=== PATIENT | female | born 1990 | race Caucasian/White ===

== ENCOUNTER 2022-02-21 20:23 | Emergency (ER) | payer OTHER ==
[~2022-02-21] VITALS: Ht 165.1 cm; Wt 79.2 kg
[~2022-02-21 20:23] MED LIST: ANTIVERT25 MG PO; DILAUDID8 MG PO; FLEXERIL10 MG PO; IBUPROFEN400 MG PO; IBUPROFEN600 MG PO; MECLIZINE HCL25 MG PO; NAPROSYN500 MG PO; ORTHO TRI-CYCL1 EAC1 PO; OXYCONTIN10 MG PO; VICODIN 5-3001 EACH PO; ZOFRAN ODT4 MG PO; ZOFRAN4 MG PO
[2022-02-21] MEDS ORDERED: CYCLOBENZAPRINE10 MG PO (21:37)
[2022-02-21] MEDS ORDERED: BENZONATATE100 MG PO (21:37)
== END 2022-02-21 22:01 | disposition home or self-care (01) ==
LOC: ED 20:23
DX: J10.1 Influenza due to other identified influenza virus with other respiratory manifestations (principal); Z20.822 Contact with and (suspected) exposure to COVID-19; Z88.0 Allergy status to penicillin; Z88.1 Allergy status to other antibiotic agents
CPT/HCPCS: 71045; 87502; 94664; 96372; 99283-25; C9803; J1885; U0003

== ENCOUNTER 2022-09-23 07:09 | Day surgery (SDC) | payer OTHER ==
[2022-09-17 15:17] VITALS: BP 10/68
[~2022-09-23] VITALS: Ht 165.1 cm; Wt 65.9 kg
[~2022-09-23 07:09] MED LIST changes: +BENZONATATE100 MG PO; +CYCLOBENZAPRINE10 MG PO
[2022-09-23 07:24] VITALS: BP 97/67
--- NOTE | 2022-09-23 10:20 | NUR ---
09/23/22 1020 Lin Bains 1015-PATIENT ARRIVED TO PACU ON 6L MASK RR EVEN NONAROUSABLE. SR. IVF INFUSING. СЕРГЕЙ PAD PLACED NO DRAINAGE.
[2022-09-23] MEDS ORDERED: MOTRIN IB200 M1 PO (10:28)
[2022-09-23 10:56] VITALS: BP 104/79
--- NOTE | 2022-09-24 19:26 | OR ---
[facility] [address], [place] [address] Signed DATE OF OPERATION: 09/23/2022 SURGEON: Kenroy Jacobsen DO PREOPERATIVE DIAGNOSES: 1. Menorrhagia. 2. Abnormal ultrasound of the endometrium. POSTOPERATIVE DIAGNOSES: 1. Menorrhagia. 2. Endometrial polyp. PROCEDURES PERFORMED: 1. Hysteroscopic polypectomy. 2. Dilation and curettage. ANESTHESIA: MAC. ESTIMATED BLOOD LOSS: 10 mL. FLUID DEFICIT: 300 mL. SPECIMEN: Endometrial curettings and polyp. FINDINGS: Normal external genitalia with normal clitoris, urethral meatus, bilateral Lyons's, Bartholin's glands. Normal vagina and cervix. Severely anterior flexed uterus. On hysteroscopy, thickened endometrium and endometrial polyp noted at 12 o'clock. Normal tubal ostia bilaterally. The polyp was completely excised. COMPLICATIONS: None. INDICATIONS: Ms. Antonio is a very pleasant 31-year-old female with a long history of heavy abnormal uterine bleeding. An ultrasound was performed, which demonstrated thickened Electronically Signed By: KENROY JACOBSEN DO (JD) 09/24/221925 PATIENT NAME: TRE ANTONIO OPERATIVE REPORT DATE OF : 86 REPORT #: [id number] PHYSICIAN: KENROY JACOBSEN DO (JD) PCP: [facility] REPORT IS CONFIDENTIAL AND NOT TO BE RELEASED WITHOUT AUTHORIZATION [address] [place] [address] Signed endometrium. Recommended hysteroscopy, D and C. Risks, benefits, and alternatives were discussed in detail with the patient. The patient understands and wishes to proceed with the procedure. TECHNIQUE: The patient was taken to the operating room where a time-out was performed to confirm correct patient and correct procedure. MAC anesthesia was adequately established. The patient was prepped and draped in a dorsal lithotomy position with the feet in Yellofin stirrups. ICPs were on and running and no preoperative antibiotics were indicated. The bladder was drained. A weighted speculum was placed in vagina and the anterior lip of the cervix was grasped with an Allis clamp. The uterus was noted to be severely anterior flexed. Allis clamp was removed and a single-tooth tenaculums were placed both on the anterior and posterior lip of the cervix in order to facilitate dilation. The cervix was then easily dilated using Hegar dilators. An operative hysteroscope was placed in the opening of the cervix and advanced under direct visualization through the cervical canal into severely anterior flexed uterus. Bilateral tubal ostia were identified. Thickened endometrium was noted and a large wide based polyp in the anterior surface of the endometrial cavity at 12 o'clock. A MyoSure Lite device was selected and polyp was excised in total. Circumferential curettage of the endometrium was performed without complication. The hysteroscope was removed and the single-tooth tenaculum was removed. The cervix was examined and found to be hemostatic. The patient was then taken to PACU in good and stable condition. Sponge, needle and instrument count was correct x2 at the end of procedure. Fluid deficit was 300 mL. DO SULEMA Kwon/MOSES /[id number] Copies: ~ Electronically Signed By: KENROY DE LA VEGA) DO VALENTINA 09/24/22 1926 PATIENT NAME: TRE ANTONIO OPERATIVE REPORT DATE OF : 86 REPORT #: [id number] PHYSICIAN: KENROY JACOBSEN DO (JD) PCP: [facility] REPORT IS CONFIDENTIAL AND NOT TO BE RELEASED WITHOUT AUTHORIZATION
== END 2022-09-23 11:10 | disposition home or self-care (01) ==
LOC: OPS 07:09 → DS 07:09 → OPS 07:30 → DS 07:30 → OPS 11:10
PROVIDERS: ATTEND Obstetrics & Gynecology
PROC: 0UDB8ZX Extraction of Endometrium, Via Natural or Artificial Opening Endoscopic, Diagnostic (ICD-10-PCS; principal; 2022-09-23 08:40)
DX: N84.0 Polyp of corpus uteri (principal); N93.9 Abnormal uterine and vaginal bleeding, unspecified; D50.0 Iron deficiency anemia secondary to blood loss (chronic)
CPT/HCPCS: 00952; J0131; J1100; J1885; J2250; J2405; J2704; J3010; J7121

== ENCOUNTER 2022-09-25 22:23 | Emergency (ER) | payer OTHER ==
[~2022-09-25] VITALS: Ht 165.1 cm; Wt 65.8 kg
[~2022-09-25 22:23] MED LIST changes: +MOTRIN IB200 M1 PO
[2022-09-25 23:35] VITALS: BP 124/91
== END 2022-09-25 23:35 | disposition home or self-care (01) ==
LOC: ED 22:23
DX: S60.111A Contusion of right thumb with damage to nail, initial encounter (principal); Z88.0 Allergy status to penicillin; Z88.5 Allergy status to narcotic agent; W23.1XXA Caught, crushed, jammed, or pinched between stationary objects, initial encounter
CPT/HCPCS: 11740; 73140; 99283 25

== ENCOUNTER 2024-06-20 20:31 | Emergency (ER) | payer OTHER ==
[~2024-06-20] VITALS: Ht 165.1 cm; Wt 56.4 kg
--- OUTSIDE RECORDS SUMMARY | 2024-06-20 20:38 | XMS ---
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: [facility] Current [facility] PHONE: [phone] THOMAS BABB Ehs Engineer Current PHONE: Unknown Forrest has no Care Guidelines for this patient. Shonda VISIT COUNT (12 MO.) 1 ROSEANNA Wardncsaurabh Cristina M.C[facility] (Myriam Miguel) TOTAL 2 NOTE: Visits indicate total known visits. ED/UCC VISIT TRACKING (12 MO.) 06/20/2024 20:32 ROSEANNA Mcdaniel OR TYPE: Emergency COMPLAINT: - POST OP PROBLEMS [facility] Emergency DIAGNOSES: - Infection following a procedure, other surgical site, initial encounter - drain tube removal - Post-op Problem INPATIENT VISIT TRACKING (12 MO.) No inpatient visits to display in this time frame [email or web address]
[2024-06-20 21:22] LABS: BASOPHILS 0.8 % (0-2); EOSINOPHILS 2.5 % (0-6); HEMATOCRIT 33.2 % (35.0-50.0); HEMOGLOBIN 11.3 g/dL (12.0-18.0); LYMPHOCYTES 29.7 % (24-44); MCH 29.4 (27-36); MCHC 34.2 g/dl (30-36); MONOCYTES 4.6 % (0-12); NEUTROPHILS 62.4 % (39-80); PLATELET COUNT 314 K/uL (140-440); RBC 3.86 M/ul (4.3-5.7); RDW 13.5 (10.5-15.0)
[2024-06-20] MEDS ORDERED: CEPHALEXIN500 MG PO (21:26)
[2024-06-20 21:33] LABS: SMEAR REVIEW BLOOD SEE COMMENTS
[2024-06-20 21:37] LABS: ALBUMIN 2.9 g/dL (3.4-5.0); ALBUMIN/GLOBULIN RATIO 0.76 (1.1-2.4); ANION GAP 10.9 (7-21); BILIRUBIN, TOTAL 0.1 mg/dL (0.2-1.0); BUN/CREATININE RATIO 6.25 (6.0-28.6); CALCIUM 8.9 mg/dL (8.5-10.1); CREATININE, SERUM 0.8 mg/dL (0.55-1.02); POTASSIUM 3.9 mmol/L (3.5-5.1); PROTEIN, TOTAL 6.7 g/dL (6.4-8.2)
[2024-06-20] MEDS ORDERED: BACTRIM DS TAB1 EACH PO (23:07)
[2024-06-20] MEDS ORDERED: HIBICLENS118 ML TOP (23:13)
[2024-06-20] MEDS ORDERED: metroNIDAZOLE 500 MG HOME.PACK PO ONE (23:15)
[2024-06-20] MEDS ORDERED: TRIMETHOPRIM/SULFAMETHOXAZOLE 1 EA HOME.PACK PO ONE (23:15)
[2024-06-20] MEDS ORDERED: DAPTOmycin 500 MG/10 ML VIAL IV ONE (23:15)
[2024-06-21 00:22] VITALS: BP 108/72
== END 2024-06-21 00:22 | disposition home or self-care (01) ==
LOC: ED 20:31
PROVIDERS: Family Medicine
DX: T81.31XA Disruption of external operation (surgical) wound, not elsewhere classified, initial encounter (principal); Z88.0 Allergy status to penicillin; Z88.5 Allergy status to narcotic agent
CPT/HCPCS: 36415; 74177; 80053; 84703; 85025; 85060; A9270; J0878; Q9967